=== PATIENT | female | born 1975 | race American Indian/Alaskan Native ===

== ENCOUNTER 2017-01-09 08:42 | Emergency (ER) | payer SELFPAY ==
[2017-01-09 08:53] VITALS: BP 155/104
[2017-01-09] MEDS ORDERED: BOOSTRIX IM ONE (10:42)
[2017-01-09] MEDS ORDERED: AUGMENTIN 875 MG PO ONE (10:42)
--- NOTE | 2017-01-09 11:24 | Emergency Department Report ---
ED Fall HPI - General Chief Complaint: Fall Stated Complaint: FELL/HIT MOUTH Time Seen by Provider: 01/09/17 10:22 Source: patient Mode of arrival: Ambulatory - History of Present Illness Initial Comments: PT states she was walking into work this morning at 0700 and she tripped while walking up the four concrete steps to her job. PT states she was carrying a lot of things and thinks she just miss stepped. PT c/o chipped tooth and multiple abrasions. pt denies loc or neck and back pain. pt was ambulatory immediately after fall. -: Sudden Fall From: standing When Fall Occurred: 1-[address] Fall Occurred: work Loss of Consciousness: none Prolonged Down Time?: no Symptoms Prior to Fall: none Location: face Location - Extremities: Left: Elbow (abrasion ), Hand (abrasion ), Knee ( abrasion ) Severity: severe Severity scale (0 -10): 7 Quality: other (throbbing ) Context: tripped/slipped Associated Symptoms: denies: neck pain, chest paint, shortness of breath, abdominal pain, unable to walk, lightheaded - Related Data Previous Rx's Medication Instructions Recorded Last Taken Type Acetaminophen/Codeine [Tylenol #3] 1 tab PO Q6H PRN #12 tab 01/09/17 Unknown Rx Amoxicillin/K Clav Tab [Augmentin 1 tab PO Q12HR #14 tab 01/09/17 Unknown Rx 875 mg] Ibuprofen [Motrin] 600 mg PO Q8H PRN #20 tablet 01/09/17 Unknown Rx Allergies Allergy/AdvReac Type Severity Reaction Status Date / Time No Known Allergies Allergy Unverified 01/09/17 08:49 ED Review of Systems ROS: Stated complaint: FELL/HIT MOUTH Other details as noted in HPI Comment: All other systems reviewed and negative ENT: dental pain. denies: epistaxis Cardiovascular: denies: chest pain Gastrointestinal: denies: abdominal pain Skin: other (abrasions) Neurological: denies: headache, weakness ED Past Medical Hx - Past Medical History Hx Hypertension: Yes Additional medical history: OBESITY - Surgical History Additional Surgical History: GASTRIC BYPASS - Social History Smoking Status: Never Smoker Substance Use Type: None - Medications Home Medications: Home Medications Medication Instructions Recorded Confirmed Last Taken Type Acetaminophen/Codeine [Tylenol #3] 1 tab PO Q6H PRN #12 tab 01/09/17 Unknown Rx Amoxicillin/K Clav Tab [Augmentin 1 tab PO Q12HR #14 tab 01/09/17 Unknown Rx 875 mg] Ibuprofen [Motrin] 600 mg PO Q8H PRN #20 tablet 01/09/17 Unknown Rx ED Physical Exam - General Limitations: No Limitations General appearance: alert, in no apparent distress - Head Head exam: Present: normocephalic, other (puncture wound to lower lip ) - Eye Eye exam: Present: normal appearance, PERRL, EOMI. Absent: conjunctival injection, nystagmus Pupils: Present: normal accommodation - ENT ENT exam: Present: normal orophraynx, mucous membranes moist, TM's normal bilaterally, normal external ear exam - Expanded ENT Exam Expanded Mouth exam: Present: other (lower lip with contusion. external lip has small puncture wound). Absent: drooling, trismus Teeth exam: Present: fractured tooth # (tooth 8 ), dental tenderness # (tooth 8 , not loose) 1 - Fractured Throat exam: Positive: normal inspection - Neck Neck exam: Present: normal inspection, full ROM, other (no post mid line C- spine tenderness, NEXUS criteria negative ). Absent: tenderness - Respiratory Respiratory exam: Present: normal lung sounds bilaterally. Absent: respiratory distress - Cardiovascular Cardiovascular Exam: Present: regular rate, normal rhythm, normal heart sounds - GI/Abdominal GI/Abdominal exam: Present: soft. Absent: tenderness - Extremities Exam Extremities exam: Present: full ROM, normal capillary refill. Absent: tenderness, pedal edema - Expanded Upper Extremity Exam Left Shoulder Exam: Present: normal inspection, full ROM. Absent: tenderness Upper Arm exam: Present: normal inspection, full ROM. Absent: tenderness Elbow exam: Present: full ROM, abrasion. Absent: tenderness Hand Wrist exam: Present: full ROM, abrasion (over 5th MCP ). Absent: tenderness, deformity, dislocation, subungual hematoma Vascular: Present: normal capillary refill, radial pulse Right Upper Arm exam: Present: normal inspection Elbow exam: Present: normal inspection, full ROM Hand Wrist exam: Present: normal inspection, full ROM - Expanded Lower Extremity Exam Left Knee exam: Present: abrasion (ant knee ). Absent: tenderness, swelling, ecchymosis Ankle exam: Present: normal inspection Right Knee exam: Present: normal inspection, full ROM. Absent: tenderness, swelling, abrasion - Back Exam Back exam: Present: normal inspection, full ROM. Absent: tenderness, CVA tenderness (R), CVA tenderness (L), muscle spasm, paraspinal tenderness, vertebral tenderness - Neurological Exam Neurological exam: Present: alert, oriented X3, CN II-XII intact, normal gait - Psychiatric Psychiatric exam: Present: normal affect, normal mood - Skin Skin exam: Present: warm, dry, abrasion ED Course Vital Signs 01/09/17 08:47 Temperature 98.3 F Pulse Rate 96 H Respiratory 19 Rate Blood Pressure 155/104 O2 Sat by Pulse 100 Oximetry - Reevaluation(s) Reevaluation #1: 01/09/17 11:34 PT's TD vaccine updateed while in ED. PT declined XRs on extremities. PT aware that she can expect to be sore from fall but pt given strict return precautions. PT aware she will need to follow up with PCP for bp recheck. - Pulse Oximetry Interpretation Digit-Finger Initial Pulse Oximetry Readin Actions Taken: none ED Medical Decision Making - Differential Diagnosis dental fracture, avulsion, abrasion, contusion Critical Care Time: No Critical care attestation.: If time is entered above; I have spent that time in minutes in the direct care of this critically ill patient, excluding procedure time. ED Disposition Clinical Impression: Need for Tdap vaccination Fall Qualifiers: Encounter type: initial encounter Qualified Code(s): W19.XXXA - Unspecified fall, initial encounter Abrasion of left elbow Qualifiers: Encounter type: initial encounter Qualified Code(s): S50.312A - Abrasion of left elbow, initial encounter Abrasion of left hand Qualifiers: Encounter type: initial encounter Qualified Code(s): S60.512A - Abrasion of left hand, initial encounter Abrasion of left knee Qualifiers: Encounter type: initial encounter Qualified Code(s): S80.212A - Abrasion, left knee, initial encounter Puncture wound of lip Qualifiers: Encounter type: initial encounter Qualified Code(s): S01.531A - Puncture wound without foreign body of lip, initial encounter Tooth fracture Qualifiers: Encounter type: initial encounter Fracture type: closed Qualified Code(s): S02.5XXA - Fracture of tooth (traumatic), initial encounter for closed fracture Disposition: DISCHARGED TO HOME OR SELFCARE Is pt being admited?: No Does the pt Need Aspirin: No Condition: Stable Instructions: Acute dental trauma (ED), Abrasion (ED), Fall Prevention (ED) Additional Instructions: No driving or ETOH if you need to take Tylenol #3 to control your pain Follow up with Dentist in the next 2-3 days Wash your abrasions twice a day with antibacterial soap. you can cover with OTC antibacterial ointment. When you follow up with your PMD, please make sure your bp is rechecked. Prescriptions: Acetaminophen/Codeine [Tylenol #3] 1 tab PO Q6H PRN #12 tab PRN Reason: Pain , Severe (7-10) Amoxicillin/K Clav Tab [Augmentin 875 mg] 1 tab PO Q12HR #14 tab Ibuprofen [Motrin] 600 mg PO Q8H PRN #20 tablet PRN Reason: Pain Referrals: PRIMARY CARE, [Primary Care Provider] - 3-5 Days RAE MILLS MD [Staff Physician] - 3-5 Days [facility] [Outside] - 3-5 Days [facility] [Outside] - 3-5 Days Forms: Work/School Release Form(ED) Time of Disposition: 11:38
== END 2017-01-09 12:18 | disposition home or self-care (01) ==
LOC: ED 08:42
DX: S02.5XXA Fracture of tooth (traumatic), initial encounter for closed fracture (principal); S80.212A Abrasion, left knee, initial encounter; S60.512A Abrasion of left hand, initial encounter; S50.312A Abrasion of left elbow, initial encounter; W01.0XXA Fall on same level from slipping, tripping and stumbling without subsequent striking against object, initial encounter; Y93.9 Activity, unspecified; Y92.9 Unspecified place or not applicable; Y99.9 Unspecified external cause status
CPT/HCPCS: 90471; 90715; 99282